=== PATIENT | male | born 2000 ===

== ENCOUNTER 2025-05-04 17:31 | Emergency (ER) | payer SELFPAY ==
[2025-05-04 17:39] VITALS: BP 98/63; PULSE 52; RESP 18; TEMP 36.4; O2SAT 96
[2025-05-04] MEDS: Ibuprofen 400 MG TAB PO (18:04)
[2025-05-04] MEDS: Acetaminophen 500 MG TAB 1000 MG PO (18:04)
[2025-05-04] MEDS: Cephalexin 500 MG CAP PO (18:04)
[2025-05-04] MEDS: Diph,Pertuss(Acell),Tet Vac/Pf 0.5 ML SYR IM (18:04)
[2025-05-04] MEDS: Lidocaine 1% Pres-Free 5 ML VIAL 10 ML IJ (18:04)
--- NOTE | 2025-05-04 18:37 | ED.GENADUL_ITS ---
Discharge Plan Disposition Patient Disposition: Home Condition: Stable Discharge Details Clinical Impression: Laceration of right thigh Primary Care Provider: Zuly,Local ED Provider: Isaiah Kirby Home Meds and New Rx's Prescriptions: No Action No Known Home Meds Discharge Instructions Instructions: Cephalexin, Laceration Repair With Stitches ED, Tdap (Tetanus, Diphtheria, Pertussis) Vaccine CDC Vaccine Information Statement (VIS) Additional Instructions: You were seen in the emergency department for the laceration of your right thigh, we updated your tetanus vaccine, your wound was repaired with 5 sutures that will need to be removed in 7 to 10 days. You can return to the emergency department to have these removed. I also had to bury 1 suture that is ab sorbable as you had cut the fascia around your quadriceps muscle-the suture will stay in and absorb over time. Please keep the wound clean and dry with daily dressing changes you can purchase Neosporin or bacitracin at any pharmacy to use as antibiotic ointment to place on the wound for the first 72 hours after that just keep it clean and dry. Do not submerge the wound underwater. Showering with soap and water is fine and recommended. Please watch for signs of infection like increasing swelling, redness, red streaking up or down the leg, nausea or fever and return immediately for any of these. We sent you home with 3 days of cephalexin, an antibiotic that will prevent infection. Please take these 1 pill every 6 hours or 4 times per day for 3 days. Lo atendieron en urgencias por dario laceraci?n en el muslo derecho. Actualizamos mejia vacuna antitet?zabrina y le repararon la herida con trinity suturas que deber?n retirarse en 7 a 10 d?as. Puede regresar a urgencias para que se las retiren. Tambi?n tuve que enterrar dario sutura absorbible, ya que se demetria? la fascia alrededor del cu?driceps; la sutura se mantendr? y se absorber? con el tiempo. Mantenga la herida limpia y seca con cambios de vendaje diarios. Puede comprar Neosporin o bacitracina en cualquier farmacia para usar negrita vito?ento antibi?selam y aplicarlo sobre la herida jayashree las primeras 72 horas. Despu?s, mant?ngala limpia y seca. No sumerja la herida bajo el agua. Ducharse con agua y jab?n es aceptable y recomendable. Est? atento a signos de infecci?n, negrita aumento de la hinchaz?n, enrojecimiento, vetas mahajan que suben o bajan por la pierna, n?useas o fiebre, y regrese de inmediato si presenta alguno de estos s?ntomas. Lo enviamos a casa con cefalexina jayashree alek d?as, un antibi?selam que previene la infecci?n. Por favor tome estas 1 p?ldora cada 6 horas o 4 veces al d?a jayashree 3 d?as. Discharge Data Discharge Date/Time-TO BE ENTERED AT DEPARTURE: 05/04/25 19:03 HPI General Date/Time Provider Initiated Documentation: 05/04/25 17:42 . 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 Quality described as open gash- not overly painful, no radiation to active bleeding, numbness, tingling, other injury, nausea, syncope. Severity is described as mild to moderate. Palliating factors include nothing specific. Provoking factors include nothing specific. Events leading up to the incident/Associated Symptoms: Patient has unknown tetanus status. Patient not anticoagulated. Related Data Home Medications ?Medication ?Instructions ?Recorded ?Confirmed Unknown [No Known Home Meds] 05/04/25 1 Allergies Allergy/AdvReac Type Severity Reaction Status Date / Time No Known Allergies Allergy Unverified 05/04/25 17:41 General Stated Complaint: Laceration JEREMY: 4 Review of Systems All systems reviewed & are unremarkable except as noted in HPI and below Exam Narrative Exam Narrative: GENERAL APPEARANCE: Well-nourished, non-toxic, awake and alert, atraumatic, no acute distress. SKIN: Warm, normal for ethnicity, dry, 3.5 cm linear gash in the right mid lateral thigh, no active bleeding, there is a slight defect to the fascia of the quadriceps muscle, neurovascular intact distal, no gross contamination HEAD: Normocephalic, atraumatic, normal hair distribution for gender/age. EYES: Normal conjunctiva, no exudates on lids/lashes. ENT: Nares patent, no circumoral cyanosis, no facial swelling NECK: Supple, trachea midline, painless cervical ROM. LUNGS/CHEST: Non-labored respirations, normal A/P diameter, symmetrical expansion, no chest wall deformity HEART (CV/PV): No peripheral edema, no JVD. ABDOMEN: Soft, non-distended, no guarding. MSK: Normal ROM, no swelling/deformity to bilateral UEs or LEs, moving all extremities without weakness, no cyanosis, spine midline without tenderness, normal curvature. NEURO: Mental Status AAOx4 - alert to person, place, time, events- appropriate responses with computational theory scientist No facial droop, no forehead involvement. Motor: No focal weakness Sensory: sensation intact to light touch globally. Gait normal: patient ambulated without ataxia into ED room. PSYCH: euthymic, cooperative, pleasant, appropriate speech Course Vital Signs Vital signs: Vital Signs Temperature 36.4 C 05/04/25 17:39 Pulse 52 L 05/04/25 17:39 Respiratory Rate 18 05/04/25 17:39 Blood Pressure 98/63 L 05/04/25 17:39 Pulse Oximetry 96 05/04/25 17:39 Temperature 36.4 C 05/04/25 17:39 Temperature Source Tympanic 05/04/25 17:39 Pulse 52 L 05/04/25 17:39 Respiratory Rate 18 05/04/25 17:39 Blood Pressure 98/63 L 05/04/25 17:39 Blood Pressure Position Sitting 05/04/25 17:39 Pulse Oximetry 96 05/04/25 17:39 Oxygen Delivery Method Room Air 05/04/25 17:39 Oxygen Flow Rate 0 05/04/25 17:39 Pain Level 8 05/04/25 17:39 Procedure Laceration Laceration 1: Provider that performed the procedure: Isaiah Kirby Standard Time Out Performed: No Patient Consented: Verbally Site: lower extremity Side (If applicable): right Description: linear and clean Depth: involves muscle layer Local anesthetic: Lidocaine 1% Amount of anesthesia used (mL): 10 Pre-repair:: wound explored and irrigated extensively Skin layer closed with: nylon Suture size: 3-0 Number of sutures:: 5 Technique: simple, interrupted Muscle layer closed with: vicryl Suture Size: 4-0 Number of sutures:: 1 Technique: simple, interrupted Complications: None Medical Decision Making This dictation utilizes [id number] dictation software and may contain unedited grammatical errors. 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 Quality described as open gash- not overly painful, no radiation to active bleeding, numbness, tingling, other injury, nausea, syncope. Severity is described as mild to moderate. Palliating factors include nothing specific. Provoking factors include nothing specific. Events leading up to the incident/Associated Symptoms: Patient has unknown tetanus status. Patients' medical history: Negative, otherwise healthy. Family and social history: Noncontributory. Pertinent exam findings / vital signs include 3.5 cm gash in the right mid lateral thigh, no active bleeding, there is a slight defect to the fascia of the quadriceps muscle, neurovascular intact distal, no gross contamination. Differential / pathologies of concern include laceration. Diagnostic studies of: - None. Interventions of: - 1 g p.o. Tylenol, 400 mg p.o. ibuprofen, updated Tdap, started on Keflex, injected 10 mL of 1% lidocaine without epinephrine prior to suture repair with 1 buried 4-0 Vicryl suture and 5 fascial sutures of 3-0 nylon after thorough washo ut, Keflex to-go for prophylaxis. ED Course/Assessment/Plan: 24-year-old male was harvesting watermelons, speaks only Citizen [place] used computational theory scientist services here and cut his right thigh with a knife, had a defect of the fascia which was repaired by 1. Vicryl 4-0 suture, external wound sutured with 5 sutures of 3-0 nylon, patient's tetanus was updated we started him on a 3-day course of prophylactic cephalexin counseled on daily wound changes and to return in 7 to 10 days for suture removal or earlier for any signs of infection, translated his discharge instructions in [place] and the [place] once were also provided. Findings not consistent with gross contamination, neurovascular compromise, infection. Disposition of laceration of right thigh. Patient verbalized understanding of the plan and return to ED criteria and engaged in shared decision making. Medical Records Medical records reviewed: Yes I reviewed the patient's medical records. [facility] All Active Problems (Updated 05/04/25 @ 18:42 by GABRIEL Shah) Laceration of right thigh (Acute) Social History Smoking/Tobacco Use Status: Never Smoking risk assessment performed?: Yes Alcohol Intake: never Drug use: Never
[2025-05-04] MEDS: Cephalexin 500 MG CAP 6000 MG PO (18:58)
== END 2025-05-04 19:03 | disposition home or self-care (01) ==
LOC: ER 19:10
PROVIDERS: Emergency Provider Physician Assistant
DX: S71.111A Laceration without foreign body, right thigh, initial encounter (principal); W26.0XXA Contact with knife, initial encounter; Z23 Encounter for immunization
CPT/HCPCS: 99283; 99284; 12002; 90471; 90715; J2003